=== PATIENT | female | born 1935 | race Caucasian/White ===

== ENCOUNTER 2021-11-22 13:44 | Emergency (ER) | payer OTHER, MEDICARE ==
[2021-11-22] MEDS ORDERED: SODIUM CHLORIDE 0.9% 1000 ML INFUS.BAG IV ONE (13:59)
[2021-11-22] MEDS ORDERED: METOCLOPRAMIDE HCL INJECTION 10 MG/2 ML VIAL IVPUSH ONE (13:59)
[2021-11-22] MEDS ORDERED: MECLIZINE HCL 25 MG TABLET (FP) PO ONE (13:59)
[2021-11-22] MEDS ORDERED: ACETAMINOPHEN 1000 MG/100 ML BAG IVPB ONE (13:59)
[2021-11-22 14:03] VITALS: TEMP 97.2; BMI 30.4
[2021-11-22] MEDS ORDERED: MECLIZINE HCL 25 MG TABLET (FP) ONE (14:15)
[2021-11-22] MEDS ORDERED: ACETAMINOPHEN INJECTION 100 ML IVPB ONE (14:15)
[2021-11-22] MEDS ORDERED: METOCLOPRAMIDE HCL INJECTION 10 MG/2 ML VIAL ONE (14:15)
[2021-11-22 14:45] LABS: ALBUMIN 4.1 g/dl (3.4-5.0); BILIRUBIN,TOTAL 0.9 mg/dl (0.2-1); CALCIUM 9.1 mg/dl (8.5-10); CREATININE 0.6 mg/dl (0.55-1.3); TOT PROT 7.1 g/dl (6.4-8.2)
[2021-11-22 15:26] LABS: BASO % 0.7 % (0-2.0); EOS % 0.1 % (0-4.5); HEMATOCRIT 40.7 % (32.4-45.2); HEMOGLOBIN 13.6 GM/dL (10.7-15.3); LYMPH % 6.3 % (8-40); MCH 28.7 pg (25.7-33.7); MCHC 33.4 g/dl (32.0-36.0); MEAN CELL VOLUME 85.9 fl (80-96); MEAN PLT VOLUME 11.6 fl (7.5-11.1); MONO % 2.6 % (3.8-10.2); NEUT % 90.3 % (42.8-82.8); PLATELET COUNT 89 10^3/uL (134-434); RBC 4.74 M/mm3 (3.60-5.2); RDW 13.2 % (11.6-15.6); WHITE BLOOD COUNT 8.7 K/mm3 (4.0-10.0)
[2021-11-22] MEDS ORDERED: LORazepam 2 MG TABLET PO ONE (15:30)
[2021-11-22] MEDS ORDERED: LORazepam 0.5 MG TABLET ONE (15:46)
[2021-11-22 16:34] VITALS: BP 165/89; PULSE 85
[2021-11-24 16:10] LABS: SARS-CoV-2 NAA Not Detected (Not Detected)
== END 2021-11-22 17:46 | disposition home or self-care (01) ==
LOC: FER 13:44
PROC: 3E033GC Introduction of Other Therapeutic Substance into Peripheral Vein, Percutaneous Approach (ICD-10-PCS; principal; 2021-11-22)
DX: R42 Dizziness and giddiness (principal); I10 Essential (primary) hypertension
CPT/HCPCS: 36415; 71045-TC-FY; 80053; 84484; 85025; 93005; 99285-25; C9803-CS; U0003; U0005

== ENCOUNTER 2024-01-23 19:14 | Emergency (ER) | payer OTHER, MEDICARE ==
[2024-01-23 19:47] VITALS: BP 149/75; PULSE 86; RESP 18; TEMP 98; BMI 28.9
[2024-01-23] MEDS: SODIUM CHLORIDE 0.9% 1000 ML INFUS.BAG IV ONE (20:05)
[2024-01-23] MEDS ORDERED: ONDANSETRON 4 MG/2 ML VIAL ONE (20:05)
[2024-01-23] MEDS: ONDANSETRON 4 MG/2 ML VIAL IVPUSH ONE (20:08)
[2024-01-23 20:13] LABS: HEMATOCRIT 42.7 % (32.4-45.2); HEMOGLOBIN 14.3 G/dL (10.7-15.3); MCH 30.1 pg (25.7-33.7); MCHC 33.6 g/dl (32.0-36.0); MEAN CELL VOLUME 89.6 fl (80-96); MEAN PLT VOLUME 12.3 fl (7.5-11.1); PLATELET COUNT 79.8 10^3/uL (134-434); RBC 4.77 10^6/uL (3.60-5.2); RDW 13.3 % (11.6-15.6); WHITE BLOOD COUNT 10.2 10^3/uL (4.0-10.8)
[2024-01-23 20:30] LABS: ALBUMIN 4.2 g/dl (3.4-5.0); BILIRUBIN,TOTAL 0.6 mg/dl (0.2-1); CREATININE 0.7 mg/dl (0.6-1.3); MAGNESIUM 1.8 mg/dL (1.8-2.4); TOT PROT 6.8 g/dl (6.4-8.2)
== END 2024-01-23 21:35 | disposition home or self-care (01) ==
LOC: FER 19:14
PROC: 3E033GC Introduction of Other Therapeutic Substance into Peripheral Vein, Percutaneous Approach (ICD-10-PCS; principal; 2024-01-23)
DX: E86.0 Dehydration (principal); R19.7 Diarrhea, unspecified; R11.0 Nausea; R14.0 Abdominal distension (gaseous)
CPT/HCPCS: 36415; 80053; 83735; 85027; 99284-25